=== PATIENT | male | born 1985 | race Caucasian/White ===

== ENCOUNTER 2018-01-09 15:15 | Inpatient (IN) | payer SELFPAY ==
[2018-01-09 15:46] VITALS: BMI 19.2
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
[2018-01-09] MEDS ORDERED: IBUPROFEN 400 MG TABLET (FP) PO PRN (19:18)
[2018-01-09] MEDS ORDERED: MAG HYDROX/AL HYDROX/SIMETH 30 ML UNIT-DOSE CUP PO PRN (19:18)
[2018-01-09] MEDS ORDERED: MAGNESIUM HYDROX 2400MG/30ML ORAL SUSPENSION 30 ML CUP PO PRN (19:18)
[2018-01-09] MEDS ORDERED: MENTHOL/PHENOL 1 EACH UD MM PRN (19:18)
[2018-01-09] MEDS ORDERED: hydrOXYzine PAMOATE 25 MG CAPSULE (FP) PO PRN (19:18)
[2018-01-09] MEDS ORDERED: LOPERAMIDE HCL 2 MG CAPSULE PO PRN (19:18)
[2018-01-09] MEDS ORDERED: chlordiazePOXIDE HCL 25 MG CAPSULE PO ONE (19:18)
[2018-01-09] MEDS ORDERED: chlordiazePOXIDE HCL 25 MG CAPSULE PO PRN (19:18)
[2018-01-09] MEDS ORDERED: P-EPHED 60MG/TRIPROLIDI 2.5MG TABLET PO PRN (19:18)
[2018-01-09] MEDS ORDERED: MAGNESIUM CITRATE 300 ML BOTTLE PO PRN (19:18)
[2018-01-09] MEDS ORDERED: guaiFENesin/D-METHORPHAN HB 10 ML UNIT-DOSE CUPS PO PRN (19:18)
[2018-01-09] MEDS ORDERED: ACETAMINOPHEN 325 MG TABLET (FP) PO PRN (19:18)
[2018-01-09] MEDS: NICOTINE POLACRILEX 2 MG GUM BC PRN (21:35)
[2018-01-09] MEDS: chlordiazePOXIDE HCL 25 MG CAPSULE PO SCH (22:05)
[2018-01-09] MEDS: THIAMINE HCL 100 MG TABLET (FP) PO SCH (22:05)
[2018-01-09] MEDS: MELATONIN 5 MG TABLETS PO PRN (22:05)
[2018-01-10] MEDS: chlordiazePOXIDE HCL 25 MG CAPSULE PO SCH ×5 (07:23→22:02)
[2018-01-10 09:26] LABS: URINE APPEARANCE CLEAR; URINE BILIRUBIN NEGATIVE (<2.0 mg/dL); URINE COLOR COLORLESS; URINE GLUCOSE (UA) NEGATIVE (NEGATIVE); URINE KETONE NEGATIVE (NEGATIVE); URINE LEUK ESTERASE NEGATIVE (NEGATIVE); URINE NITRITE NEGATIVE (NEGATIVE); URINE PROTEIN NEGATIVE (NEGATIVE); URINE UROBILINOGEN NEGATIVE mg/dL (0.2-1.0)
[2018-01-10] MEDS: PRENATAL VITAMINS W/ FOLIC ACID TABLET (FP) PO SCH (10:08)
[2018-01-10] MEDS: NICOTINE 21 MG/24 HOURS TOPICAL PATCH TD SCH (10:09)
[2018-01-10] MEDS: NICOTINE POLACRILEX 2 MG GUM BC PRN ×2 (10:10→16:31)
[2018-01-10 11:11] LABS: HEMATOCRIT 47.6 % (35.4-49); HEMOGLOBIN 16.3 GM/dL (11.7-16.9); MCHC 34.2 g/dl (32.0-35.9); MEAN CELL VOLUME 96.4 fl (80-96); MEAN PLT VOLUME 8.1 fl (7.5-11.1); PLATELET COUNT 182 K/MM3 (134-434); RBC 4.94 M/mm3 (4.00-5.60); RDW 13.5 % (11.9-15.9); WHITE BLOOD COUNT 6.8 K/mm3 (4.0-10.0)
[2018-01-10 11:33] LABS: ANION GAP 9 (8-16); BLOOD UREA NITROGEN 14 mg/dL (7-18); CALCIUM 9.6 mg/dL (8.5-10.1); CHLORIDE 102 mmol/L (98-107); CO2 30 mmol/L (21-32); CREATININE 0.8 mg/dL (0.7-1.3); GLUCOSE,RANDOM 76 mg/dL (74-106); SGOT/AST 25 U/L (15-37); SGPT/ALT 26 U/L (12-78); SODIUM 141 mmol/L (136-145)
[2018-01-10 11:40] LABS: ALK PHOS 80 U/L (45-117); TOT PROT 7.1 g/dl (6.4-8.2)
--- NOTE | 2018-01-10 15:02 | PN ---
[facility] CIWA - CIWA Score Nausea/Vomitin-No Nausea/No Vomiting Muscle Tremors: None Anxiety: 4-Mod. Anxious/Guarded Agitation: 2 Paroxysmal Sweats: 3 Orientation: 0-Oriented Tacttile Disturbances: 3-Moderate Itch/Numb/Burn Auditory Disturbances: 2-Mild Harshness/Frighten Visual Disturbances: 0-None Headache: 0-None Present CIWA-Ar Total Score: 14 BHS Progress Note (SOAP) Subjective: Sweating, Anxious, Fatigue. Objective: PATIENT A & O X 3, OBSERVED AMBULATING ON UNIT. NO ACUTE DISTRESS. 01/10/18 15:02 Vital Signs Temperature 98.7 F 01/10/18 14:40 Pulse Rate 61 01/10/18 14:40 Respiratory Rate 18 01/10/18 14:40 Blood Pressure 122/60 01/10/18 14:40 O2 Sat by Pulse Oximetry (%) Laboratory Tests 01/09/18 01/10/18 01/10/18 08:20 07:45 07:45 WBC 6.8 RBC 4.94 Hgb 16.3 Hct 47.6 MCV 96.4 H MCH 33.0 MCHC 34.2 RDW 13.5 Plt Count 182 MPV 8.1 Sodium Potassium Chloride Carbon Dioxide Anion Gap BUN Creatinine Creat Clearance w eGFR Random Glucose Calcium Total Bilirubin AST ALT Alkaline Phosphatase Total Protein Albumin Urine Color Colorless Urine Appearance Clear Urine pH 7.0 Ur Specific [place] 1.002 Urine Protein Negative Urine Glucose (UA) Negative Urine Ketones Negative Urine Blood Negative Urine Nitrite Negative Urine Bilirubin Negative Urine Urobilinogen Negative Ur Leukocyte Esterase Negative RPR Titer HIV 1&2 Antibody Screen Negative HIV P24 Antigen Negative 01/10/18 01/10/18 07:45 07:45 WBC RBC Hgb Hct MCV MCH MCHC RDW Plt Count MPV Sodium 141 Potassium 4.0 Chloride 102 Carbon Dioxide 30 Anion Gap 9 BUN 14 Creatinine 0.8 Creat Clearance w eGFR > 60 Random Glucose 76 Calcium 9.6 Total Bilirubin 1.0 AST 25 ALT 26 Alkaline Phosphatase 80 Total Protein 7.1 Albumin 4.0 Urine Color Urine Appearance Urine pH Ur Specific [place] Urine Protein Urine Glucose (UA) Urine Ketones Urine Blood Urine Nitrite Urine Bilirubin Urine Urobilinogen Ur Leukocyte Esterase RPR Titer Nonreactive HIV 1&2 Antibody Screen HIV P24 Antigen LABS NOTED. Assessment: 01/10/18 15:03 WITHDRAWAL SYMPTOMS. Plan: CONTINUE DETOX.
[2018-01-10] MEDS: THIAMINE HCL 100 MG TABLET (FP) PO SCH (22:02)
[2018-01-10] MEDS: MELATONIN 5 MG TABLETS PO PRN (22:02)
[2018-01-11 06:10] VITALS: BP 100/56; PULSE 48; TEMP 97.6
[2018-01-11] MEDS: chlordiazePOXIDE HCL 25 MG CAPSULE PO SCH ×2 (06:23→11:55)
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
--- NOTE | 2018-01-11 10:12 | DS ---
[facility] Detox Discharge Summary Admission Date: 01/09/18 Discharge Date: 01/11/18 - History Present History: Alcohol Dependence - Physical Exam Results Vital Signs: Vital Signs Temperature 97.6 F 01/11/18 06:09 Pulse Rate 48 L 01/11/18 06:09 Respiratory Rate 01/11/18 06:09 Blood Pressure 100/56 01/11/18 06:09 O2 Sat by Pulse Oximetry (%) Pertinent Admission Physical Exam Findings: pt is alert and oriented walking and without complaints - Treatment Hospital Course: Detox Protocol Followed, Responded well - Medication Discharge Medications: Ambulatory Orders NK [No Known Home Medication] 01/09/18 - Diagnosis (1) Alcohol withdrawal Current Visit: Yes Status: Acute Qualifiers: Complication of substance-induced condition: uncomplicated Qualified Code(s ): F10.230 - Alcohol dependence with withdrawal, uncomplicated (2) Gout Current Visit: Yes Status: Chronic Qualifiers: Gout site: knee Gout etiology: unspecified cause Chronicity: chronic Laterality: unspecified laterality Qualified Code(s): 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
--- NOTE | 2018-01-11 10:18 | EKG ---
Test Reason : Blood Pressure : / mmHG Vent. Rate : 064 BPM Atrial Rate : 064 BPM P-R Int : 158 ms QRS Dur : 114 ms QT Int : 388 ms P-R-T Axes : 063 100 077 degrees QTc Int : 400 ms NORMAL SINUS RHYTHM WITH SINUS ARRHYTHMIA RIGHTWARD AXIS INCOMPLETE RIGHT BUNDLE BRANCH BLOCK BORDERLINE ECG NO PREVIOUS ECGS AVAILABLE Confirmed by FREDRICK DANIELS MD ([id number]) on 01/11/2018 10:17:40 AM Referred By: Confirmed By:FREDRICK DANIELS MD
[2018-01-11] MEDS: NICOTINE 21 MG/24 HOURS TOPICAL PATCH TD SCH (11:55)
[2018-01-11] MEDS: PRENATAL VITAMINS W/ FOLIC ACID TABLET (FP) PO SCH (11:55)
[2018-01-11] MEDS ORDERED: chlordiazePOXIDE 5 MG CAPSULE PO SCH (23:00)
[2018-01-12] MEDS ORDERED: chlordiazePOXIDE HCL 10 MG CAPSULE PO SCH (23:00)
== END 2018-01-11 08:41 | disposition left against medical advice (07) | DRG 770 ==
LOC: YASAS 15:15 → Y3W 17:54 → Y3N 18:00
PROVIDERS: ADMIT Psychiatry & Neurology Psychiatry; ATTEND Surgery
PROC: HZ2ZZZZ Detoxification Services for Substance Abuse Treatment (ICD-10-PCS; principal; 2018-01-09)
DX: F10.230 Alcohol dependence with withdrawal, uncomplicated (principal); F15.10 Other stimulant abuse, uncomplicated; M1A.0690 Idiopathic chronic gout, unspecified knee, without tophus (tophi); F17.210 Nicotine dependence, cigarettes, uncomplicated
CPT/HCPCS: 36415; 80053; 81003; 85027; 86593; 87389; 93005; 93010